=== PATIENT | male | born 1950 | race Two or more races ===

== ENCOUNTER 2023-07-22 06:36 | Day surgery (SDC) | payer OTHER ==
[~2023-07-22] VITALS: Ht 170.2 cm; Wt 79.4 kg
[~2023-07-22 06:36] MED LIST: ATORVASTATIN CA10 MG PO; COZAAR100 MG PO; METFORMIN HCL500 M3 PO
[2023-07-22] MEDS ORDERED: NAPR500T14 PO (11:41)
[2023-07-22] MEDS ORDERED: CEPHALEXIN500 M1 PO (11:41)
== END 2023-07-22 14:10 | disposition home or self-care (01) ==
LOC: CIR.AMB 06:36
PROVIDERS: ATTEND Surgery
DX: K40.90 Unilateral inguinal hernia, without obstruction or gangrene, not specified as recurrent (principal); D17.6 Benign lipomatous neoplasm of spermatic cord; E11.9 Type 2 diabetes mellitus without complications; E78.5 Hyperlipidemia, unspecified; I10 Essential (primary) hypertension; Z20.822 Contact with and (suspected) exposure to COVID-19